=== PATIENT | male | born 1965 | race Caucasian/White ===

== ENCOUNTER 2017-04-03 11:06 | Day surgery (SDC) | payer MEDICAID ==
[2017-04-03] MEDS ORDERED: LIDOCAINE 1% 2 ML INJ ID PRN (11:15)
[2017-04-03] MEDS ORDERED: LR 1,000 ML IV ONE (11:15)
[2017-04-03] MEDS ORDERED: NALOXONE HCL 0.4 MG/ML INJ IVP PRN (12:14)
[2017-04-03] MEDS ORDERED: ALBUTEROL 3 ML DEYVIAL IH PRN (12:14)
[2017-04-03] MEDS ORDERED: ONDANSETRON 4 MG/2 ML VIAL IVP PRN (12:14)
[2017-04-03] MEDS ORDERED: fentaNYL 100 MCG/2 ML INJ IVP PRN (12:14)
--- NOTE | 2017-04-03 12:14 | PDANEPAE ---
ANE History of Present Illness here for colonoscopy ANE Past Medical History - Cardiovascular History Hx Hypertension: No Hx Arrhythmias: No Hx Chest Pain: No Hx Coronary Artery / Peripheral Vascular Disease: No Hx CHF / Valvular Disease: No Hx Palpitations: No - Pulmonary History Hx COPD: No Hx Asthma/Reactive Airway Disease: No Hx Recent Upper Respiratory Infection: No Hx Oxygen in Use at Home: No Hx Sleep Apnea: No Sleep Apnea Screening Result - Last Documented: Negative - Neurologic History Hx Cerebrovascular Accident: No Hx Seizures: No Hx Dementia: No Neurologic History Comment: hx of broken back- unsure of level - Endocrine History Hx Diabetes: No - Renal History Hx Renal Disorders: No - Liver History Hx Hepatic Disorders: No - Neurological & Psychiatric Hx Hx Neurological and Psychiatric Disorders: No - Cancer History Hx Cancer: No - Congenital Disorder History Hx Congenital Disorders: No - GI History Hx Gastrointestinal Disorders: No - Other Health History Other Health History: wears reading glasses - Chronic Pain History Chronic Pain: Yes (chronic back pain) - Surgical History Prior Surgeries: broken back repair ANE Review of Systems Review of systems is: negative Review of Systems: - Exercise capacity Exercise capacity: <4 METS METS (RN): 4 METS ANE Patient History - Allergies Allergies/Adverse Reactions: No Known Allergies Allergy (Verified 03/20/17 11:36) - Home Medications Home medications: home medication list seen and reviewed Home Medications: Flexeril PRN 03/20/17 [Last Taken 3 Days Ago ~03/31/17] Hydrocodone-Acetamin 10-325 mg 1 DAILY 03/20/17 [Last Taken 2 Days Ago ~04/01/17 ] Xanax 1 MG (*) PRN 03/20/17 [Last Taken 2 Days Ago ~04/01/17] - NPO status NPO Status: no food or drink >8 hours NPO Since - Liquids (Date): 04/02/17 NPO Since - Liquids (Time): 22:00 NPO Since - Solids (Date): 04/01/17 NPO Since - Solids (Time): 18:00 - Anes Hx Anes Hx: no prior problems - Smoking Hx Smoking Status: Former smoker - Family Anes Hx Family Hx Anesthesia Complications: none ANE Labs/Vital Signs - Vital Signs Vital Signs: reviewed preoperatively; see RN documention for details Blood Pressure: 133/90 Heart Rate: 73 Respiratory Rate: 18 O2 Sat (%): 97 Height: 177.8 cm Weight: 83.915 kg ANE Physical Exam - Airway Neck exam: FROM Mallampati Score: Class 1 - Pulmonary Pulmonary: no respiratory distress - Cardiovascular Cardiovascular: regular rate and rhythym - ASA Status ASA Status: II ANE Anesthesia Plan Anesthesia Plan: GA with mask
[2017-04-03] MEDS ORDERED: PROPOFOL/EMULSION 500 MG/50 ML BOTTLE IV ONE (12:29)
--- NOTE | 2017-04-03 12:31 | PDGENHP ---
History & Physical Chief Complaint: screening History of Present Illness: 51 year old male presents for screening colonoscopy. Pertinent Past, Social, Family History: PMHx: pain. PSurghX: back surgery. FaMHx: No CRC Relevant Physical Exam: HEENT: anicteric. CV: RRR +s1s2. Lungs: CTAB. Abd: soft, nt, + bs Cardiorespiratory Assessment: ASA 2
[2017-04-03] MEDS ORDERED: PROPOFOL 200 MG/20 ML VIAL ONE (12:39)
--- NOTE | 2017-04-03 13:30 | POSTANESTH ---
Post Anesthetic Evaluation Cardiovascular Status: Normal, Stable Respiratory Status: Normal, Stable Level of Consciousness/Mental Status: Can Participate in Eval Pain Control: Adequate, Prn Tx Ordered Nausea/Vomiting Control: Adequate, Prn Tx Ordered Complications Possibly Related to Anesthesia: None Noted
[2017-04-03 13:40] VITALS: BP 131/94; PULSE 66; RESP 16; TEMP 97.5; O2SAT 96
--- NOTE | 2017-04-03 19:55 | GPN ---
[f rep st] PROCEDURE NOTE DATE OF PROCEDURE: 04/03/2017 PROCEDURE: Colonoscopy. PROCEDURE INDICATION: The patient is a 51-year-old male who presents for screening colonoscopy. CONSENT: Risks, benefits, and alternatives of the procedure were discussed in great detail with the patient. Risk of infection, bleeding, perforation, and sedation were discussed. All questions answered. Informed consent obtained. MEDICATIONS: Propofol. Please see Anesthesia notes for details. ESTIMATED BLOOD LOSS: Insignificant. COLONOSCOPIC EVALUATION: A rectal exam was performed and no palpable masses was felt. The scope was introduced into the rectum and advanced to the cecum where the ileocecal valve and appendiceal orifice were visualized. The quality of the prep was good. No polyps or mass were visualized on careful examination of the colon. IMPRESSION: Normal colonoscopy. RECOMMENDATIONS: 1. Repeat colonoscopy in 10 years. 2. Continue previous medications. 3. Advance diet. /[id number]/MODL MTDD
== END 2017-04-03 13:55 | disposition home or self-care (01) ==
LOC: FSGY 11:06
PROVIDERS: ATTEND Internal Medicine Gastroenterology
PROC: 0DJD8ZZ Inspection of Lower Intestinal Tract, Via Natural or Artificial Opening Endoscopic (ICD-10-PCS; principal; 2017-04-03 12:30)
DX: Z12.11 Encounter for screening for malignant neoplasm of colon (principal)
CPT/HCPCS: J2704